=== PATIENT | female | born 2000 | race Caucasian/White ===

== ENCOUNTER 2023-10-13 04:33 | Inpatient (IN) | payer BC ==
[2023-10-13] VITALS (67 sets, daily range): BP systolic 94–145; BP diastolic 51–105; PULSE 63–139; TEMP 98–98.7
[~2023-10-13] VITALS: Ht 157.5 cm; Wt 86.4 kg
--- NOTE | 2023-10-13 04:40 | NUR ---
PATIENT AMBULATORY TO UNIT AND STATES HER WATER BROKE AT 0300 THIS MORNING AND CONTRACTIONS STARTED AROUND THAT SAME TIME, DENIES VAGINAL BLEEDING. PATIENT CHANGED INTO PERSONAL LABOR GOWN. AMNIOSWAB POSITIVE. SVE NOTED.
[2023-10-13] MEDS ORDERED: LR 1,000 ML IV PRN (04:45)
[2023-10-13] MEDS ORDERED: LR & Oxytocin 500 ML IV SCH ×2 (05:30)
[2023-10-13] MEDS ORDERED: LR 1,000 ML IV SCH (05:30)
[2023-10-13 06:26] LABS: BASO % 0.3 % (0.0-2.0); EOS # 0.1 K/mm3 (0.0-0.7); EOS % 0.5 % (0.0-4.0); GRAN # 7.6 K/mm3 (1.4-6.5); GRAN % 69.5 % (42.2-75.2); HEMATOCRIT 39.1 % (37.0-47.0); HEMOGLOBIN 12.9 g/dl (12.5-16.0); LYMPH # 2.5 K/mm3 (1.2-3.4); LYMPH % 22.8 % (20.0-51.0); MEAN CELL VOLUME 81 fl (80.0-100.0); MEAN CORPUSCULAR HEMOGLOBIN 27 pg (27-31); MEAN CORPUSCULAR HGB CONC 33 g/dl (33.0-37.0); MEAN PLATELET VOLUME 11.4 fl (7.4-10.4); MONO # 0.6 K/mm3 (0.1-0.6); MONO % 5.6 % (1.7-9.3); PLATELET COUNT 226 K/mm3 (130-400); RED BLOOD COUNT 4.84 M/mm3 (4.10-5.30); REDCELL DISTRIBUTION WIDTH-CV 14.6 % (11.5-14.5)
--- NOTE | 2023-10-13 08:20 | NUR ---
AT BEDSIDE. ULTRASOUND PERFORMED, VERTEX PRESENTATION CONFIRMED. NO SVE AT THIS TIME. PITOCIN INFUSING PER ORDER. WILL CONTINUE WITH POC.
[2023-10-13] MEDS ORDERED: ROPivacaine PF 0.2% 200 ML IV ONE (09:08)
--- NOTE | 2023-10-13 09:21 | NUR ---
NATHEN KENDALL CRNA AT BEDSIDE. MATERNAL VITAL SIGNS STABLE. CATEGORY 1 EFM TRACING. PT TO SITTING POSITION FOR EPIDURAL PLACEMENT. DIFFICULTY TRACING EFM AND TOCO DUE TO MATERNAL POSITIONING. LR BOLUS INFUSING PER PROTOCOL. 0921: TEST DOSE PER PATRICK SENA. PT TOLERATED PROCEDURE WELL.
[2023-10-13] MEDS ORDERED: diphenhydrAMINE 25 MG CAP PO PRN (10:30)
[2023-10-13] MEDS ORDERED: ePHEDrine 50 MG/10 ML VIAL IV PRN (10:30)
[2023-10-13] MEDS ORDERED: Ondansetron 4 MG/2 ML VIAL IV PRN (10:30)
[2023-10-13] MEDS ORDERED: diphenhydrAMINE 50 MG/ML 1 ML VIAL IV PRN (10:30)
[2023-10-13] MEDS ORDERED: Naloxone 0.4 MG/ML VIAL IV PRN (10:30)
[2023-10-13] MEDS ORDERED: NS 20 ML IV ONE (21:54)
[2023-10-13] MEDS ORDERED: Ketorolac 30 MG/ML VIAL ONE (21:54)
[2023-10-13] MEDS ORDERED: dexAMETHasone 10 MG/ML VIAL ONE (21:54)
[2023-10-13] MEDS ORDERED: Ondansetron 4 MG/2 ML VIAL ONE (21:54)
[2023-10-13] MEDS ORDERED: Oxytocin 10 UNITS/ML VIAL ONE (21:54)
[2023-10-13] MEDS ORDERED: Chloroprocaine PF 3% (30 MG/ML) 20 ML VIAL ONE (21:58)
[2023-10-13] MEDS ORDERED: Methylergonovine 0.2 MG/ML 1 ML AMPUL ONE (22:04)
--- NOTE | 2023-10-13 22:15 | NUR ---
AT 2200 THE PATIENT AND CAME TO THE DECISION TO PROCEED WITH A C/S. THE PATIENT IS VERY ANXIOUS AND "TERRIFIED". PREP FOR THE PATIENT BEGINS, CLIPPED PATIENTS MONS PUBIS, AND CLEANED THE ABD WITH HIBICLENS. THE PATIENT CONSENT IS SIGNED AND ON THE CHART. ALL QUESTIONS ASKED OF WERE ANSWERED. PT TRANSPORTING TO THE OR AT 2230. SUPPORT PERSON TO OR WITH PT. NO OTHER CONCERNS REGARDING THIS PATIENT.
[2023-10-13] MEDS ORDERED: EPINEPHrine 1 MG/1 ML Ampule ONE (22:19)
[2023-10-13] MEDS ORDERED: Azithromycin 500 MG in NS 250 ML IV ONE (22:30)
[2023-10-14] VITALS (11 sets, daily range): BP systolic 110–145; BP diastolic 60–83; PULSE 65–104; TEMP 97.3–99
[2023-10-14] MEDS ORDERED: Acetaminophen 500 MG TAB PO SCH ×2 (00:15→19:00)
[2023-10-14] MEDS ORDERED: Ondansetron 4 MG/2 ML VIAL IV PRN (00:15)
[2023-10-14] MEDS ORDERED: Naloxone 0.4 MG/ML VIAL IV PRN (00:15)
[2023-10-14] MEDS ORDERED: oxyCODONE 5 MG TAB PO PRN (00:15)
[2023-10-14] MEDS ORDERED: LR 1,000 ML IV PRN (00:15)
[2023-10-14] MEDS ORDERED: Measles/Mumps/Rubella Virus Vaccine Live w Diluent 0.5 ML VIAL SQ SCH (00:15)
[2023-10-14] MEDS ORDERED: Morphine 4 MG/ML VIAL IV PRN (00:15)
[2023-10-14] MEDS ORDERED: Ibuprofen 600 MG TAB PO SCH (05:00)
[2023-10-14 05:51] LABS: HEMOGLOBIN 12.1 g/dl (12.5-16.0)
[2023-10-14 05:55] LABS: HEMATOCRIT 36.7 % (37.0-47.0)
[2023-10-14] MEDS ORDERED: Sennosides/Docusate 8.6-50 MG TAB PO SCH (08:00)
[2023-10-14] MEDS ORDERED: Loratadine 10 MG TAB PO PRN (09:00)
--- NOTE | 2023-10-14 13:10 | NUR ---
MOM USED PUMP BTOH SIDES AND WTHDREW 25ML
[2023-10-14] MEDS ORDERED: Magnes Hydrox (MOM) 80 MG/ML 30 ML CUP PO PRN (21:00)
[2023-10-14] MEDS ORDERED: traZODone 50 MG TAB PO PRN (21:00)
[2023-10-15] MEDS ORDERED: ROXICODONE 55 MG/TAB PO (07:58)
[2023-10-15] MEDS ORDERED: TYLENOL 500MG500 MG PO (07:58)
[2023-10-15] MEDS ORDERED: IBU600 MG PO (07:58)
[2023-10-15 08:07] VITALS: BP 106/69; PULSE 65; TEMP 97.9
--- NOTE | 2023-10-15 13:45 | NUR ---
DISCHARGE TEACHING COMPLETED. EDUCATED ON 6 WEEK APPOINTMENT AND TO CALL OFFICE ON MONDAY TO MAKE 2 WEEK APPOINTMENT. PRESCIPTIONS REVIEWED. QUESTIONS INVITED AND ANSWERED.
== END 2023-10-15 14:20 | disposition home or self-care (01) | DRG 788 ==
LOC: LDRO 04:33 → LDR 05:32 → OB 10-14 04:08
PROVIDERS: ADMIT Obstetrics & Gynecology
PROC: 10D00Z1 Extraction of Products of Conception, Low, Open Approach (ICD-10-PCS; principal; 2023-10-13)
PROC: 3E033VJ Introduction of Other Hormone into Peripheral Vein, Percutaneous Approach (ICD-10-PCS; 2023-10-13)
DX: O99.344 Other mental disorders complicating childbirth (principal); Z3A.39 39 weeks gestation of pregnancy; Z37.0 Single live birth; F41.9 Anxiety disorder, unspecified; O76 Abnormality in fetal heart rate and rhythm complicating labor and delivery
CPT/HCPCS: J0171; J0456; J0665; J0690; J1100; J1885; J2210; J2270; J2401; J2405; J2590; J2795; J7050; J7120